=== PATIENT | male | born 1970 | race Caucasian/White ===

== ENCOUNTER 2018-08-19 11:48 | Observation (INO) | payer BC ==
[2018-08-19] MEDS ORDERED: Ondansetron INJ* 2 MG/ML VIAL IV ONE (12:22)
[2018-08-19] MEDS ORDERED: NS 0.9% 1000 ML* 1,000 ML IV ONE (12:22)
[2018-08-19] MEDS ORDERED: Morphine VIAL* 4 MG/ML VIAL (1 ml vial) IV ONE (12:22)
[2018-08-19 12:44] LABS: Hematocrit 45 % (42-52); Hemoglobin 15.1 g/dl (14.0-18.0); Mean Corpuscular HGB Conc 34 g/dl (31-36); Mean Corpuscular Hemoglobin 30 pg (27-31); Mean Corpuscular Volume 88 fL (80-94); Mean Platelet Volume 7.9 fL (7.4-10.4); Platelet Count 349 10^3/ul (150-450); Red Blood Count 5.09 10^6/ul (4.00-5.40); Red Cell Distribution Width 14 % (10.5-15); White Blood Count 24.7 10^3/ul (3.5-10.8)
[2018-08-19 13:06] LABS: EGFR Non-African American 61.1 (>60)
[2018-08-19] MEDS ORDERED: HYDROmorphone INJ* 2 MG/ML CARPUJECT SYRINGE IV SLOW PU ONE (13:16)
[2018-08-19] MEDS ORDERED: HYDROmorphone INJ1* 1 MG/ML SYRINGE ONE (13:20)
[2018-08-19] MEDS ORDERED: HYDROmorphone INJ1* 1 MG/ML SYRINGE IV SLOW PU ONE (13:21)
--- NOTE | 2018-08-19 14:03 | ED ---
Back Pain - HPI Summary HPI Summary: Patient is a 48-year-old male who presents emergency department for right flank pain that radiates into his right groin started early this morning. Patient states he has passed one kidney stone in his lifetime that was fairly large. Never had an abdominal pelvic imaging. He has never seen a urologist or needed intervention. Past medical history of Crohn's disease and recently started Remicade. Patient notes he was tapered off prednisone several days ago. He denies fever, chills. Notes nausea and vomiting. Notes darkened urine but denies dysuria. Otherwise past medical history positive for high blood pressure and gastric ulcer. Symptoms are moderate in severity. No current modifying factors. - History of Current Complaint Chief Complaint: EDFlankPain Stated Complaint: RIGHT FLANK PAIN Time Seen by Provider: 08/19/18 12:05 Hx Obtained From: Patient Pain Intensity: 10 - Allergies/Home Medications Allergies/Adverse Reactions: Allergies Allergy/AdvReac Type Severity Reaction Status Date / Time azathioprine Allergy Unknown Unknown Verified 03/19/18 12:01 Reaction Details Home Medications: Home Medications inFLIXimab* [Remicade*] 100 mg IV ONCE 08/19/18 [History Confirmed 08/19/18] PMH/Surg Hx/FS Hx/Imm Hx Previously Healthy: Yes Cardiovascular History: Reports: Hx Hypertension Respiratory History: Reports: Other Respiratory Problems/Disorders - smoker GI History: Reports: Other GI Disorders - colitis Infectious Disease History: No Infectious Disease History: Denies: Traveled Outside the [place] in Last 30 Days - Family History Known Family History: Positive: Non-Contributory - Social History Occupation: Employed Full-time Lives: With Family Alcohol Use: Occasionally Substance Use Type: Reports: None Smoking Status (MU): Heavy Every Day Tobacco Smoker Type: Cigarettes Review of Systems Constitutional: Negative Negative: Fever, Chills Cardiovascular: Negative Respiratory: Negative Positive: Abdominal Pain, Vomiting, Nausea. Negative: Diarrhea Positive: flank pain Neurological: Negative All Other Systems Reviewed And Are Negative: Yes Physical Exam Triage Information Reviewed: Yes Vital Signs On Initial Exam: Initial Vitals Temp Pulse Resp BP Pulse Ox 97.5 F 98 18 160/100 98 08/19/18 11:51 08/19/18 11:51 08/19/18 11:51 08/19/18 11:51 08/19/18 11:51 Vital Signs Reviewed: Yes Appearance: Positive: Pain Distress - Patient lying in bed, appears comfortable and nontoxic. present. Skin: Positive: Warm, Dry Head/Face: Positive: Normal Head/Face Inspection Eyes: Positive: Normal, EOMI Neck: Positive: Supple Respiratory/Lung Sounds: Positive: Clear to Auscultation, Breath Sounds Present Cardiovascular: Positive: Normal, RRR Abdomen Description: Positive: Other: - Mild diffuse abdominal tenderness mostly to the right lower quadrant. Right CVA tenderness. Abdomen is soft without rigidity. Neurological: Positive: Normal, CN Intact II-III Psychiatric: Positive: Affect/Mood Appropriate Diagnostics - Vital Signs Vital Signs Temp Pulse Resp BP Pulse Ox 08/19/18 13:49 84 16 130/85 94 08/19/18 13:21 20 08/19/18 13:19 76 12 156/102 99 08/19/18 13:00 78 16 97 08/19/18 12:49 78 15 151/101 97 08/19/18 12:45 20 08/19/18 12:19 80 22 170/115 99 08/19/18 11:51 97.5 F 98 18 160/100 98 - Laboratory Lab Results: Lab Results 08/19/18 08/19/18 Range/Units 12:36 12:36 WBC 24.7 H (3.5-10.8) 10^3/ul RBC 5.09 (4.00-5.40) 10^6/ul Hgb 15.1 (14.0-18.0) g/dl Hct 45 (42-52) % MCV 88 (80-94) fL MCH 30 (27-31) pg MCHC 34 (31-36) g/dl RDW 14 (10.5-15) % Plt Count 349 (150-450) 10^3/ul MPV 7.9 (7.4-10.4) fL Neut % (Auto) Pending Lymph % (Auto) Pending [place] % (Auto) Pending Eos % (Auto) Pending Baso % (Auto) Pending Absolute Neuts (auto) Pending Absolute Lymphs (auto) Pending Absolute Monos (auto) Pending Absolute Eos (auto) Pending Absolute Basos (auto) Pending Absolute Nucleated RBC Pending Nucleated RBC % Pending Sodium 135 (135-145) mmol/L Potassium 3.7 (3.5-5.0) mmol/L Chloride 102 (101-111) mmol/L Carbon Dioxide 24 (22-32) mmol/L Anion Gap 9 (2-11) mmol/L BUN 18 (6-24) mg/dL Creatinine 1.25 H (0.67-1.17) mg/dL Est GFR ( Amer) 74.0 (>60) Est GFR (Non-Af Amer) 61.1 (>60) BUN/Creatinine Ratio 14.4 (8-20) Glucose 134 H (70-100) mg/dL Calcium 9.5 (8.6-10.3) mg/dL Total Bilirubin 0.60 (0.2-1.0) mg/dL AST 27 (13-39) U/L ALT 21 (7-52) U/L Alkaline Phosphatase 60 (34-104) U/L Total Protein 7.5 (6.4-8.9) g/dL Albumin 4.2 (3.2-5.2) g/dL Globulin 3.3 (2-4) g/dL Albumin/Globulin Ratio 1.3 (1-3) Result Diagrams: 08/19/18 12:36 08/19/18 12:36 Lab Statement: Any lab studies that have been ordered have been reviewed, and results considered in the medical decision making process. Back Pain Course/Dx - Course Course Of Treatment: Presenting with right flank and pelvic pain hurts suspect urolithiasis based on history. He is afebrile with stable vital signs. Nontoxic appearing. Patient started on IV fluids and given morphine and Zofran. Pending labs, urinalysis and CT scan. CT read per radiology: IMPRESSION: THERE IS AN 8 MM CALCULUS IN THE PROXIMAL TO MID RIGHT URETER CAUSING MODERATE TO SEVERE HYDRONEPHROSIS. CBC shows a leukocytosis of 24,000. Differential is pending. Possible secondary to recent prednisone use. CMP shows mild elevation in creatinine. Urinalysis shows trace ketones without bacteria, WBC or leukocytes. Patient minimal pain relief with morphine. Avoiding giving IV Toradol given history of Crohn's and gastric ulcer. Will try 1mg of IV Dilaudid. I spoke with Dr. Thomas, urology, who reviewed labs and CT scan. He plans to take pt to OR tonight for a stent. Dr. Thomas pt. be admitted to hospitalist service as he would like for him to monitored for signs of sepsis given elevated WBC. I spoke with hospitalist, Dr. Hernández, and he has accepted pt. to his service. Results and plan discussed with pt. and . His pain has been moderately controlled with IV dilaudid. Will keep NPO. - Diagnoses Differential Diagnosis/HQI/PQRI: Positive: Renal Colic, Strain, Sprain Provider Diagnoses: Urolithiasis, Hydronephrosis, Leukocytosis Discharge - Sign-Out/Discharge Documenting (check all that apply): Patient Departure - Discharge Plan Condition: Stable Disposition: ADMITTED TO [facility] Referrals: Prakash Wesley MD [Primary Care Provider] - - Billing Disposition and Condition Condition: STABLE Disposition: Admitted to [facility]
[2018-08-19 14:21] LABS: Urine Appearance Clear; Urine Blood Negative (Negative); Urine Color Yellow; Urine Ketones Trace (Negative); Urine Protein Negative (Negative); Urine Specific Gravity 1.019 (1.010-1.030); Urine Urobilinogen Negative (Negative)
[2018-08-19] MEDS ORDERED: HYDROmorphone INJ1* 1 MG/ML SYRINGE IV SLOW PU PRN ×3 (14:44→21:31)
[2018-08-19] MEDS ORDERED: cefTRIAXone(*) 1 GM in NS 0.9% 50 ML* 50 ML IVPB ONE (15:28)
--- NOTE | 2018-08-19 15:48 | ADMNOTE ---
Subjective Date of Service: 08/19/18 Interval History: ADMISSION HISTORY AND PHYSICAL EXAM: Allergies Allergy/AdvReac Type Severity Reaction Status Date / Time azathioprine Allergy Unknown Unknown Verified 03/19/18 12:01 Reaction Details Home Medications Medication Instructions Recorded Confirmed Type Multivitamins/Minerals TAB* 1 tab PO DAILY 12/28/17 08/19/18 History [Theragran/minerals TAB*] Lisinopril/HCTZ /12.5(NF) 1 tab PO DAILY 03/19/18 08/19/18 History [Zestoretic 12.5(NF)] inFLIXimab* [Remicade*] 100 mg IV ONCE 08/19/18 08/19/18 History HPI: R flank pain began 2 PM today while patient was at work> He could not continue at woork and came to the ED. He had a kidney stone about 2 years ago but passed it spontaneously. Family History: Findings - unremarkable Social History: Findings - Lives with his who is his SDM. 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 Smoker, occ 3 beers. Past Medical History: Findings - Crohn's diease about 6 months. HTN. Review of Systems - Measurements Intake and Output: Intake and Output Last 24 Hours 08/17/18 08/18/18 08/19/18 08/20/18 06:59 06:59 06:59 06:59 Intake Total 1000 Balance 1000 Weight 180 lb Intake: IV Fluids 1000 - Review of Systems Constitutional Symptoms: Negative: Weight Gain, Weight Loss, Weakness, Fatigue, Fever, Night Sweats, Unexplained Falls, Other Dermatology: Positive: Normal HEENT: Positive: Normal Eyes: Positive: Normal Thyroid: Positive: Normal Pulmonary: Positive: Normal Cardiology: Positive: Normal Gastroenterology: Positive: Other - Crohn's diease improved on infliximab Genitourinary - Male: Negative: Prostatism, Erectile Dysfunction, Family Hx of Prostate Cancer, Other Musculoskeletal: Negative: Joint Pain, Joint Stiffness, Arthritis, Osteoporosis, Low Back Pain , Sciatica, Joint Deformities, Kyphoscoliosis, Other Endocrinology: Positive: Normal Hematologic/Lymphatic: Negative: Anemia, Easy Brusing, Hx Leukemia, Hx Lymphoma, Use of Anticoagulant, Use of Antiplatelet Drugs, Other Neurology: Positive: Normal Psychiatry: Positive: Normal Allergic/Immunologic: Negative: Hx Anaphylaxis, Hx Angioedema, Hx Environmental, Hx Seasonal, Athsma, Hx HIV, Immunocompromise, Swollen Glands LymphNodes, Other Objective Active Medications: Hydromorphone HCl (Dilaudid Inj1s*) 1 mg IV SLOW PU Q2H PRN PRN Reason: PAIN Last Admin: 08/19/18 14:59 Dose: 1 mg Ceftriaxone Sodium 1 gm/ (Sodium Chloride) 50 mls @ 100 mls/hr IVPB ED ONCE ONE Stop: 08/19/18 15:57 Last Admin: 08/19/18 15:38 Dose: 100 mls/hr Vital Signs - 8 hr 08/19/18 08/19/18 08/19/18 11:51 12:19 12:45 Temperature 97.5 F Pulse Rate 98 80 Respiratory 18 22 20 Rate Blood Pressure 160/100 170/115 (mmHg) O2 Sat by Pulse 98 99 Oximetry 08/19/18 08/19/18 08/19/18 12:49 13:00 13:19 Temperature Pulse Rate 78 78 76 Respiratory 15 16 12 Rate Blood Pressure 151/101 156/102 (mmHg) O2 Sat by Pulse 97 97 99 Oximetry 08/19/18 08/19/18 08/19/18 13:21 13:49 14:00 Temperature Pulse Rate 84 84 Respiratory 20 16 15 Rate Blood Pressure 130/85 (mmHg) O2 Sat by Pulse 94 92 Oximetry 08/19/18 08/19/18 14:19 14:59 Temperature Pulse Rate 80 Respiratory 16 18 Rate Blood Pressure 141/85 (mmHg) O2 Sat by Pulse 96 Oximetry Oxygen Devices in Use Now: None Appearance: Alert, supine on ED stretcher. In good spirits, looks comfortable. Eyes: No Scleral Icterus Ears/Nose/Mouth/Throat: Clear Oropharnyx, Mucous Membranes Moist Neck: NL Appearance and Movements; NL JVP, No Thyroid Enlargement, Masses Respiratory: Symmetrical Chest Expansion and Respiratory Effort, Clear to Auscultation, Clear to Percussion Cardiovascular: NL Sounds; No Murmurs; No JVD, RRR, No Edema Abdominal: NL Sounds; No Tenderness; No Distention, No Hepatosplenomegaly, - - Mod R flank tenderness. Extremities: No Edema, No Clubbing, Cyanosis, - Skin: No Rash or Ulcers, No Nodules or Sclerosis, - Neurological: Alert and Oriented x 3, NL Sensation Result Diagrams: 08/19/18 12:36 08/19/18 12:36 Additional Lab and Data: Lab Results 08/19/18 08/19/18 Range/Units 12:36 12:36 WBC 24.7 H (3.5-10.8) 10^3/ul RBC 5.09 (4.00-5.40) 10^6/ul Hgb 15.1 (14.0-18.0) g/dl Hct 45 (42-52) % MCV 88 (80-94) fL MCH 30 (27-31) pg MCHC 34 (31-36) g/dl RDW 14 (10.5-15) % Plt Count 349 (150-450) 10^3/ul MPV 7.9 (7.4-10.4) fL Neut % (Auto) Pending Lymph % (Auto) Pending [place] % (Auto) Pending Eos % (Auto) Pending Baso % (Auto) Pending Absolute Neuts (auto) Pending Absolute Lymphs (auto) Pending Absolute Monos (auto) Pending Absolute Eos (auto) Pending Absolute Basos (auto) Pending Absolute Nucleated RBC Pending Nucleated RBC % Pending Sodium 135 (135-145) mmol/L Potassium 3.7 (3.5-5.0) mmol/L Chloride 102 (101-111) mmol/L Carbon Dioxide 24 (22-32) mmol/L Anion Gap 9 (2-11) mmol/L BUN 18 (6-24) mg/dL Creatinine 1.25 H (0.67-1.17) mg/dL Est GFR ( Amer) 74.0 (>60) Est GFR (Non-Af Amer) 61.1 (>60) BUN/Creatinine Ratio 14.4 (8-20) Glucose 134 H (70-100) mg/dL Calcium 9.5 (8.6-10.3) mg/dL Total Bilirubin 0.60 (0.2-1.0) mg/dL AST 27 (13-39) U/L ALT 21 (7-52) U/L Alkaline Phosphatase 60 (34-104) U/L Total Protein 7.5 (6.4-8.9) g/dL Albumin 4.2 (3.2-5.2) g/dL Globulin 3.3 (2-4) g/dL Albumin/Globulin Ratio 1.3 (1-3) Assess/Plan/Problems-Billing Assessment: - Patient Problems (1) Ureterolithiasis Current Visit: Yes Status: Acute Comment: Right sided. Dr. Thomas to evaluate/stent this evening. (2) Crohns disease Current Visit: Yes Status: Acute Code(s): K50.90 - CROHN'S DISEASE, UNSPECIFIED, WITHOUT COMPLICATIONS SNOMED Code(s): 93400301 Comment: Hold infliximab. (3) HTN (hypertension) Current Visit: Yes Status: Acute Code(s): I10 - ESSENTIAL (PRIMARY) HYPERTENSION SNOMED Code(s): 35286687 Comment: Hold lisinopril/thiazide.
[2018-08-19 15:50] LABS: ABS Basophils 0.2 10^3/ul (0-0.2); ABS Eosinophils 0 10^3/ul (0-0.6); ABS Lymphocytes 1.2 10^3/ul (1.0-4.8); ABS Monocytes 1.4 10^3/ul (0-0.8); ABS Neutrophils 21.9 10^3/ul (1.5-7.7); ABS Nucleated RBC 0 10^3/ul; Eosinophil % 0.1 %; Lymphocyte % 4.7 %; Nucleated Red Blood Cells % 0.1
[2018-08-19] MEDS ORDERED: Iohexol 180 (CONTRAST) 10 ML SDV IV ONE (17:08)
[2018-08-19] MEDS ORDERED: fentaNYL* 50 MCG/ML 2 ML VIAL (100 MCG VIAL) ONE ×2 (17:20→18:38)
[2018-08-19] MEDS ORDERED: Dexamethasone IV* 4 MG/ML 1 ML (4 MG) ONE (17:21)
[2018-08-19] MEDS ORDERED: Ondansetron INJ* 2 MG/ML VIAL ONE (17:21)
[2018-08-19] MEDS ORDERED: Famotidine IV* 10 MG/ML 2 ML (20 mg) ONE (17:21)
[2018-08-19] MEDS ORDERED: Midazolam* 1 MG/ML 2 ML VIAL (2 MG) ONE (17:21)
[2018-08-19] MEDS ORDERED: Lidocaine 2% PF * 5 ML VIAL ONE (17:21)
[2018-08-19] MEDS ORDERED: Propofol* 10 MG/ML 20 ML BTL ONE (17:21)
[2018-08-19] MEDS ORDERED: fentaNYL* 50 MCG/ML 2 ML VIAL (100 MCG VIAL) IV PRN (17:28)
[2018-08-19] MEDS ORDERED: diPHENhydraMINE IV* 50 MG/ML 1 ml VIAL (BENADRYL) IV PRN (17:28)
[2018-08-19] MEDS ORDERED: Levalbuterol 0.63MG/3ML NEB* UNIT OF USE INH PRN (17:28)
[2018-08-19] MEDS ORDERED: PROCHLORPERAZINE INJ 5 MG/ML 2 ML VIAL IV PRN (17:28)
[2018-08-19] MEDS ORDERED: Acetaminophen TAB* 325 MG PO PRN (17:28)
[2018-08-19] MEDS ORDERED: Naloxone* 0.4 MG/ML 1 ML VIAL IV PRN (17:28)
[2018-08-19] MEDS ORDERED: HYDROmorphone INJ1* 1 MG/ML SYRINGE IV PRN (17:28)
[2018-08-19] MEDS ORDERED: DiMENhydriNATE IV* 50 MG/ML VIAL IV PUSH PRN (17:28)
[2018-08-19] MEDS ORDERED: EPHEDrine (Pressors)* 50 MG/ML VIAL ONE (17:52)
[2018-08-19] MEDS ORDERED: oxyCODONE TAB* 5 MG TAB PO PRN (23:42)
[2018-08-20 05:58] LABS: ABS Basophils 0 10^3/ul (0-0.2); ABS Eosinophils 0 10^3/ul (0-0.6); ABS Lymphocytes 0.9 10^3/ul (1.0-4.8); ABS Monocytes 0.4 10^3/ul (0-0.8); ABS Neutrophils 12.1 10^3/ul (1.5-7.7); ABS Nucleated RBC 0 10^3/ul; Eosinophil % 0 %; Hematocrit 37 % (42-52); Hemoglobin 12.3 g/dl (14.0-18.0); Lymphocyte % 6.7 %; Mean Corpuscular HGB Conc 33 g/dl (31-36); Mean Corpuscular Hemoglobin 30 pg (27-31); Mean Corpuscular Volume 89 fL (80-94); Mean Platelet Volume 8.8 fL (7.4-10.4); Nucleated Red Blood Cells % 0; Platelet Count 254 10^3/ul (150-450); Red Blood Count 4.17 10^6/ul (4.00-5.40); Red Cell Distribution Width 14 % (10.5-15); White Blood Count 13.5 10^3/ul (3.5-10.8)
[2018-08-20 07:35] LABS: EGFR Non-African American 89.3 (>60)
--- NOTE | 2018-08-20 08:52 | OP ---
DATE OF OPERATION: 08/19/18 - ROOM #343 DATE OF : 66 SURGEON: Dr. Thomas. ANESTHESIOLOGIST: Dr. Lucas Love. ANESTHESIA: General. PRE-OP DIAGNOSES: 1. Proximal right ureteral calculus. 2. Right renal colic due to above. POST-OP DIAGNOSES: 1. Proximal right ureteral calculus. 2. Right renal colic due to above. 3. Meatal stenosis. OPERATIVE PROCEDURE: 1. Cystoscopy. 2. Right retrograde pyelography. 3. Placement of right ureteral stent (6-South African). INDICATIONS: Mr. Renee is a 48-year-old white male who has past history of renal calculus disease and presented to the emergency room today with 12 hours' history of right renal colic. He did not have any fever or chills. Urinalysis was negative for infection. His white count was markedly elevated at 24,000; however, this was felt to be secondary to leukemoid reaction from the recent intake of prednisone for Crohn's disease. Noncontrast CT of the abdomen and pelvis showed a 7 to 8 mm calculus in the proximal right ureter associated with moderate right hydronephrosis. Because of the above history, the patient was taken to the operating room for stent placement. Because of the very high count and although it is likely to be leukemoid reaction, a right ureteroscopy will not be performed just in case there is an element of infection causing the elevated count. PATHOLOGY AT CYSTOSCOPY: There was a narrowing of the fossa navicularis and it could be dilated only to 20-South African. The rest of the urethra looked normal. The prostatic fossa was short and open. Examination of the bladder showed normal mucosa. There was 1 orthotopic orifice on each side. The orifices looked normal. There were no suspicious bladder lesions seen. At fluoroscopy, a radiopaque calculus was noted in the area of the proximal right ureter. Upon right retrograde pyelography, [id number] right hydronephrosis was noted. The urine drained from the right collecting system was clear and non-cloudy. DESCRIPTION OF PROCEDURE: After successful general anesthesia, the patient was placed in the lithotomy position and was prepped and draped for a cystoscopy. The 22-South African cystoscope could not be introduced inside the fossa navicularis. The fossa was then dilated to 20-South African and the 20-South African cystoscope was passed inside the urethra. The rest of the urethra was inspected. The bladder was entered and inspected and the above findings were noted. Using a hybrid guidewire, the right orifice was intubated and the guidewire was passed without difficulty inside the area of the renal pelvis. Retrograde pyelography was performed. A size 6-South African stent was then placed with the proximal end coiling in the renal pelvis and the distal end coiling inside the bladder. There was good drainage of contrast from the kidney and no extravasation. Final fluoroscopy the calculus seemed to be still in the same position at the junction between the proximal and the mid thirds of the ureter. The patient tolerated the procedure well and left the operating room in good condition. The plan is to observe the patient overnight for possible sepsis. A KUB will be obtained in the morning. He will then be brought back in for definitive treatment of the stone. [id number]/[facility] #: [id number] MTDD
[2018-08-20] MEDS ORDERED: cefTRIAXone(*) 1 GM in NS 0.9% 50 ML* 50 ML IVPB ONE (09:00)
[2018-08-20] MEDS ORDERED: Hydrochlorothiazide TAB* 25 MG PO SCH (09:00)
[2018-08-20] MEDS ORDERED: Lisinopril TAB* 10 MG PO SCH (09:00)
[2018-08-20] MEDS ORDERED: Multivitamins/Minerals TAB PO SCH (09:00)
[2018-08-20 09:07] VITALS: BP 103/63
--- NOTE | 2018-08-20 10:15 | DS ---
CC: Dr. Rutledge * DATE OF ADMISSION: 08/19/2018. DATE OF DISCHARGE: 08/20/2018. HISTORY: This 48-year-old man presented with right flank pain. He was found on CT scan to have a right ureteral stone with hydronephrosis. The patient states he had a stone about two years ago which passed spontaneously. The patient had recently had Prednisone which may have accounted for his leukocytosis. Dr. Thomas saw him on the evening of admission and inserted a right ureteral stent. He said the urine draining from the stent was perfectly clear. The patient's urinalysis from voided urine was completely normal. His white count came down to about half of the initial value. By the next morning, the patient had no fever. He felt much better. Although the likelihood of infection seemsrelatively low, he has a foreign body and is taking Infliximab. In fact, he is having aninfliximab injection later in the morning after discharge. I felt it was prudent to give him five days of oral antibiotic. He was take Cefuroxime 500 mg b.i.d. for five days. FINAL DIAGNOSES: 1. Right ureter stone. 2. Crohn's disease. 3. Hypertension. The patient's blood pressure medication is being held for re-evaluation by his PCP. DISCHARGE MEDICATIONS: 1. Cefuroxime 500 mg b.i.d. for five days. 2. Multivitamin with mineral daily. 3. Infliximab 100 mg as prescribed. Lisinopril Hydrochlorothiazide is on hold. CONDITION ON DISCHARGE: stable DISPOSITION ON DISCHARGE: discharge home [id number]/[facility] #: [id number] CLYDE
== END 2018-08-20 10:50 | disposition home or self-care (01) ==
LOC: ED 11:48 → SSU 15:55
PROVIDERS: ADMIT Internal Medicine; ATTEND Internal Medicine
DX: N20.2 Calculus of kidney with calculus of ureter (principal); A52.76 Other genitourinary symptomatic late syphilis; K50.90 Crohn's disease, unspecified, without complications; I10 Essential (primary) hypertension; Z79.899 Other long term (current) drug therapy
CPT/HCPCS: 36415; 74018; 74176; 74420; 80048; 80053; 81003; 85025; 87086; 96374; 96375; 96376; 99284; A9270-GY; C1876; G0378; J0696; J1100; J1170; J2250; J2270; J2405; J2704; J3010

== ENCOUNTER → 2018-08-30 06:48 | Day surgery (SDC) | payer BC ==
--- NOTE | 2018-08-23 10:35 | HP ---
CC: Dr. Wesley HISTORY AND PHYSICAL: DATE OF PLANNED ADMISSION AND SURGERY: 08/30/18 HISTORY OF PRESENT ILLNESS: Mr. Renee is a 48-year-old white male, who is admitted with a right ureteral calculus, status post placement of right ureteral stent for cystoscopy, right ureteroscopy, laser lithotripsy, and right ureteral stent exchange. Mr. Renee presented to the emergency room on 08/19/18 with symptoms of right renal colic. He did not have any fever or chills. Noncontrast CT of the abdomen and pelvis showed an 8-mm calculus in the proximal to mid right ureter associated with moderate right hydronephrosis. On admission he had an elevated white count of 24,700. He did not have any signs of sepsis. The patient has Crohn's disease and had recently completed a course of prednisone and was starting Remicade. The elevated white count was thought to be likely due a leukemoid reaction secondary to the steroids. The patient was taken to the operating room for stent placement. Because there was still small concern that he had undeclared sepsis based on his elevated white count, it was decided not to perform an ureteroscopy but just to place a right ureteral stent. He was observed overnight in the hospital. He did very well postoperatively. He did not have any fever or chills. The next morning, repeat white count was down to 13,000 and the patient was feeling fine. He was discharged home on cephalosporin antibiotic. The patient was then evaluated in the office and had a KUB, which showed the right ureteral stent in good position. There was a suggestion of a calculus in the mid right ureter. The patient then had a renal ultrasound in the office, which confirmed that the stone is in fact in the mid right ureter adjacent to the stent. The patient now is admitted for cystoscopy, right ureteroscopy, laser lithotripsy, and right ureteral stent exchange. PAST MEDICAL HISTORY AND SYSTEM REVIEW: The patient has Crohn's disease and is followed by Gastroenterology. He is starting Remicade. He has hypertension, maintained on lisinopril. ALLERGIES: He reports being allergic to AZATHIOPRINE with an unknown reaction. FAMILY HISTORY: Negative. SOCIAL HISTORY: He is a chronic smoker. PHYSICAL EXAMINATION GENERAL: Pleasant, healthy-looking white male. VITAL SIGNS: Blood pressure 126/80, pulse of 86. LUNGS: Clear. HEART: Regular and rhythmic. No murmurs. ABDOMEN: Soft. No masses, no tenderness, and no CVA tenderness. EXTERNAL GENITALIA: Normal. IMPRESSION: 1. An 8-mm calculus in the mid right ureter. 2. Status post placement of right ureteral stent. 3. Crohn's disease, on treatment. PLAN: For cystoscopy, right ureteroscopy, laser lithotripsy, and right ureteral stent exchange. I discussed the above plans in detail with the patient and all his questions were answered. [id number]/[facility] #: [id number] MTDD
[~2018-08-30 06:48] MED LIST: Buffered Lidocaine 0.9% SYRIN* 5 ML/SYR SYRINGE INTRADERM ONE; Iohexol 180 (CONTRAST) 10 ML SDV IV ONE; Lactated Ringers 1000 ML Bag* 1,000 ML IV SCH; Lidocaine 2% JELLY* 6 ML JELLY TOPICAL ONE; Lidocaine 2% PF * 5 ML VIAL ONE; Lisinopril TAB* 5 MG PO ONE; Naloxone* 0.4 MG/ML 1 ML VIAL IV PRN; Ondansetron INJ* 2 MG/ML VIAL IV PRN; Propofol* 10 MG/ML 20 ML BTL ONE; Sodium Citrate/Citric Acid* 15 ML UDC ONE; Sodium Citrate/Citric Acid* 15 ML UDC PO ONE; cefTRIAXone(*) 2 GM ADDV.VIAL IVPB ONE; fentaNYL* 50 MCG/ML 2 ML VIAL (100 MCG VIAL) ONE; oxyCODONE/Acetamin 5/325 MG* TAB ONE
[2018-08-30] MEDS: fentaNYL* 50 MCG/ML 2 ML VIAL (100 MCG VIAL) IV PRN ×3 (09:50→10:49)
[2018-08-30 11:20] VITALS: BP 122/86
--- NOTE | 2018-08-30 12:12 | OP ---
CC: Dr. Prakash Wesley* DATE OF OPERATION: 08/30/18 - [facility] DATE OF : 66 SURGEON: Nilson Thomas MD ANESTHESIOLOGIST: Dr. Jeremiah Sam. ANESTHESIA: General. PRE-OP DIAGNOSES: 1. Proximal right ureteral calculus (8 mm). 2. Status post placement of right ureteral stent. POST-OP DIAGNOSES: 1. Proximal right ureteral calculus (8 mm). 2. Status post placement of right ureteral stent. OPERATIVE PROCEDURE: 1. Cystoscopy 2. Right ureteroscopy and laser lithotripsy of right renal calculus. 3. Right retrograde pyelography and placement of right ureteral stent (6-Chilean ). INDICATION FOR PROCEDURE: Mr. Renee is a 48-year-old male who presented with right renal colic and was noted on CT to have an 8 mm calculus in the proximal right ureter. He had urgent placement of right ureteral stent. The patient now is admitted for definitive treatment of the stone. PATHOLOGY: At cystoscopy, there was a narrowing of the fossa navicularis of the urethra requiring dilation. The rest of the urethra looked normal. Examination of the bladder showed the distal limb of the stent coming from the right ureteral orifice. There was the expected edema around the stent. At fluoroscopy, the stent was in good position and a radiopaque calculus was noted in the proximal right ureter. Upon right ureteroscopy, the calculus was identified in the right ureter. It was impacted. It had the gross appearance of a calcium oxalate stone. The estimated size was 8 to 10 mm. DESCRIPTION OF PROCEDURE: After successful general anesthesia, the patient was placed in the lithotomy position and was prepped and draped for cystoscopy. Cystoscopy was performed, the bladder inspected, and the above findings were noted. The distal limb of the stent was pulled out to the level of the urethral meatus. A flexible-tip guidewire was then introduced into the lumen of the stent and positioned in the area of the renal pelvis by fluoroscopy guidance. The stent was removed keeping the guidewire in place. The calculus was noted on fluoroscopy. A size 6.5 semirigid ureteroscope was then introduced inside the bladder. A flexible-tip basket was introduced through the port of the ureteroscope and its flexible tip was introduced into the right ureter alongside the guidewire. That allowed the atraumatic introduction of the ureteroscope into the right ureter. The calculus was identified. The basket was then introduced proximal to the stone and it was deployed to prevent proximal migration of the stone fragments. A size 550 micron laser fiber was then introduced through the other port of the ureteroscope. The stone was then broken into multiple fragments. The fragments were then extracted using the basket. Final inspection showed no evidence of any ureteral wall injury. There was the expected edema from the impacted stone. No residual stone fragments were noted. Retrograde pyelography was then performed and size 6-Chilean stent was then placed with the proximal end coiling in the renal pelvis and the distal end coiling inside the bladder. There was good drainage of contrast from the kidney and no extravasation. The bladder was irrigated and the larger stone fragments were extracted and sent for stone analysis. The patient tolerated the procedure well and left the operating room in good condition. The plan is to leave the stent in place for about 10 days. It will be removed in the office under local anesthesia. [id number]/[facility] #: [id number] CLYDE
== END | disposition home or self-care (01) ==
LOC: OR 06:48
PROVIDERS: ATTEND Urology
DX: N20.1 Calculus of ureter (principal); K50.90 Crohn's disease, unspecified, without complications; I10 Essential (primary) hypertension; G47.33 Obstructive sleep apnea (adult) (pediatric); Z72.0 Tobacco use
CPT/HCPCS: 74420; 82365; 88300; A9270-GY; C1876; J0696; J2704; J3010